=== PATIENT | female | born 1965 | race Caucasian/White ===

== ENCOUNTER 2018-03-24 05:31 | Emergency (ER) | payer OTHER ==
[~2018-03-24] VITALS: Ht 175.3 cm; Wt 68.1 kg
[~2018-03-24 05:31] MED LIST: ALPR0.25 PO
[2018-03-24 05:39] VITALS: BP 186/82
[2018-03-24] MEDS ORDERED: KETOROLAC 30 MG/1 ML IM ONE (06:00)
[2018-03-24] MEDS ORDERED: KETOROLAC 30 MG/1 ML ONE (06:10)
[2018-03-24] MEDS ORDERED: BENZONATATE 100 MG CAPSULE PO ONE (06:30)
--- NOTE | 2018-03-24 06:56 | NUR ---
REPORT GIVEN TO KELSIE CRAWLEY
== END 2018-03-24 07:12 | disposition home or self-care (01) ==
LOC: ED 07:01
DX: J06.9 Acute upper respiratory infection, unspecified (principal); F17.200 Nicotine dependence, unspecified, uncomplicated; I10 Essential (primary) hypertension
CPT/HCPCS: 71045; 96372; 99283; J1885

== ENCOUNTER 2018-07-24 12:21 | Emergency (ER) | payer OTHER ==
[~2018-07-24] VITALS: Ht 170.2 cm; Wt 65.0 kg
[2018-07-24 13:04] LABS: BASOPHILS # (AUTO) 0.04 x10^3/uL (0-0.1); BASOPHILS % (AUTO) 1 % (0-1); EOSINOPHILS % (AUTO) 3 % (1-7); LYMPHOCYTES # (AUTO) 2.67 x10^3/uL (1-3.4); LYMPHOCYTES % (AUTO) 36 % (22-44); MD NO; MEAN CORPUSCULAR HEMOGLOBIN 35.8 pg (27.0-34.8); MEAN CORPUSCULAR HGB CONC 34.9 g/dL (32.4-35.8); MEAN CORPUSCULAR VOLUME 102.5 fL (80-100); MEAN PLATELET VOLUME 7.6 fL (7.4-10.4); MONOCYTES # (AUTO) 0.54 x10^3/uL (0.2-0.8); MONOCYTES % (AUTO) 7 % (2-9); NEUTROPHILS # (AUTO) 4.06 x10^3/uL (1.8-6.8); NEUTROPHILS % (AUTO) 54 % (42-75); PLATELET COUNT 243 x10^3/uL (130-400); RED BLOOD COUNT 4.81 x10^6/uL (3.82-5.3); RED CELL DISTRIBUTION WIDTH 13.6 % (9.6-15.2)
[2018-07-24 13:16] LABS: ALBUMIN 4.2 g/dL (3.4-5.0); ANION GAP 8 mmol/L (5-15); CALCIUM 8.5 mg/dL (8.5-10.1); CHLORIDE 115 mmol/L (98-107); CREATININE 0.61 mg/dL (0.55-1.02)
[2018-07-24 13:20] LABS: TROPONIN I < 0.015 ng/mL (0.000-0.045)
--- NOTE | 2018-07-24 13:33 | NUR ---
PT'S CHART UP FOR RECHECK. PT HAS REMOVED MONITORS AND BP CUFF, STATING SHE WOULD LIKE TO LEAVE. INFORMED HER THAT HER RESULTS ARE BACK AND THAT THE MD WILL SEE HER SOON. PT BACK TO ROOM, SITTING ON EDGE OF BED, DECLINED TO HAVE MONITORS REPLACED. ED MD BONDS MADE AWARE.
[2018-07-24 14:00] VITALS: BP 127/65
== END 2018-07-24 14:02 | disposition home or self-care (01) ==
LOC: ED 13:45
DX: M94.0 Chondrocostal junction syndrome [Tietze] (principal); I10 Essential (primary) hypertension
CPT/HCPCS: 36415; 71046; 80048; 82040; 84484; 85025; 93005; 99284

== ENCOUNTER 2019-03-10 14:08 | Emergency (ER) | payer MEDICAID, OTHER ==
[~2019-03-10] VITALS: Ht 175.3 cm; Wt 66.2 kg
--- NOTE | 2019-03-10 14:15 | NUR ---
NIL 141
[2019-03-10 14:16] VITALS: BP 126/52
[2019-03-10 14:50] LABS: BASOPHILS # (AUTO) 0.04 x10^3/uL (0-0.1); BASOPHILS % (AUTO) 1 % (0-1); EOSINOPHILS # (AUTO) 0.19 x10^3/uL (0-0.4); EOSINOPHILS % (AUTO) 2 % (1-7); LYMPHOCYTES # (AUTO) 2.12 x10^3/uL (1-3.4); LYMPHOCYTES % (AUTO) 28 % (22-44); MD NO; MEAN CORPUSCULAR HEMOGLOBIN 34.1 pg (27.0-34.8); MEAN CORPUSCULAR VOLUME 100.4 fL (80-100); MEAN PLATELET VOLUME 7.8 fL (7.4-10.4); MONOCYTES # (AUTO) 0.67 x10^3/uL (0.2-0.8); MONOCYTES % (AUTO) 9 % (2-9); NEUTROPHILS # (AUTO) 4.68 x10^3/uL (1.8-6.8); NEUTROPHILS % (AUTO) 61 % (42-75); PLATELET COUNT 258 x10^3/uL (130-400); RED BLOOD COUNT 4.85 x10^6/uL (3.82-5.3); RED CELL DISTRIBUTION WIDTH 13.1 % (9.6-15.2)
[2019-03-10 15:01] LABS: ALBUMIN 3.7 g/dL (3.4-5.0); ANION GAP 5 mmol/L (5-15); CALCIUM 9.5 mg/dL (8.5-10.1); CHLORIDE 103 mmol/L (98-107)
[2019-03-10 15:05] LABS: ALANINE AMINOTRANSFERASE 139 U/L (12-78); ALKALINE PHOSPHATASE 92 U/L (45-117); BILIRUBIN,TOTAL 0.9 mg/dL (0.2-1.0); CREATININE 0.84 mg/dL (0.55-1.02); TOTAL PROTEIN 7.2 g/dL (6.4-8.2)
--- NOTE | 2019-03-10 15:05 | NUR ---
PT MOVED TO ROOM
--- NOTE | 2019-03-10 15:08 | NUR ---
PT MOVED TO ROOM.
--- NOTE | 2019-03-10 15:45 | NUR ---
PATIENT RESTING ON GURNEY WITH FAMILY AT BEDSIDE. CALL LIGHT IN REACH. DENIES FURTHER NEEDS AT THIS TIME.
[2019-03-10] MEDS ORDERED: THIAMINE 100MG TABLET ONE (15:47)
--- NOTE | 2019-03-10 15:50 | NUR ---
PATIENT MEDICATED PER EMAR.
[2019-03-10] MEDS ORDERED: THIAMINE 100MG TABLET PO ONE (16:00)
[2019-03-10] MEDS ORDERED: LORazepam 1MG TABLET ONE (16:05)
[2019-03-10] MEDS ORDERED: LORazepam 1MG TABLET PO ONE (16:30)
--- NOTE | 2019-03-10 17:15 | NUR ---
Patient given discharge instructions and they have confirmed that they understand the instructions. Patient ambulatory with steady gait.
== END 2019-03-10 17:16 | disposition home or self-care (01) ==
LOC: ED 17:00
DX: S09.8XXA Other specified injuries of head, initial encounter (principal); F10.10 Alcohol abuse, uncomplicated; I10 Essential (primary) hypertension; Y90.0 Blood alcohol level of less than 20 mg/100 ml; X58.XXXA Exposure to other specified factors, initial encounter; Y93.89 Activity, other specified; Y92.89 Other specified places as the place of occurrence of the external cause; Y99.8 Other external cause status
CPT/HCPCS: 36415; 70450; 70486; 80053; 80307; 85025; 99284

== ENCOUNTER 2019-12-30 12:03 | Emergency (ER) | payer MEDICAID ==
[~2019-12-30] VITALS: Ht 175.3 cm; Wt 75.0 kg
--- NOTE | 2019-12-30 12:51 | NUR ---
DETECTIVE AUTOMOBILE SECTION NOTE: PT AMBULATORY TO ROOM 22 FROM [facility].
--- NOTE | 2019-12-30 13:10 | NUR ---
BREAK RN: 'I CAME FROM /, HERE TO HAVE A CAT SCAN.' HAPPENED 2 DAYS AGO, TRIPPED ON A FLIP FLOP." "SHE IS GOING IN AND OUT OF CONSCIOUSNESS" DENIES BLOOD THINNERS WAS TOLD LAST WED A CO-WORKER TESTED POSITIVE FOR COVID PT PLACED ON HOUSEMAID
[2019-12-30] MEDS ORDERED: ACETAMINOPHEN 500 MG TABLET ONE (13:29)
[2019-12-30] MEDS ORDERED: ACETAMINOPHEN 500 MG TABLET PO ONE (13:30)
[2019-12-30 15:08] VITALS: BP 146/71
--- NOTE | 2019-12-30 15:08 | NUR ---
ambulated to discharge window steady gait.
== END 2019-12-30 15:10 | disposition home or self-care (01) ==
LOC: ED 14:05
DX: S09.90XA Unspecified injury of head, initial encounter (principal); R11.0 Nausea; W19.XXXA Unspecified fall, initial encounter; Y93.89 Activity, other specified; Y92.098 Other place in other non-institutional residence as the place of occurrence of the external cause; Y99.8 Other external cause status
CPT/HCPCS: 70450; 72125; 93005; 99285